=== PATIENT | male | born 1985 | race Caucasian/White ===

== ENCOUNTER 2024-10-21 11:23 | Emergency (ER) | payer OTHER ==
[~2024-10-21] VITALS: Ht 180.3 cm; Wt 108.0 kg
[2024-10-21] MEDS ORDERED: ACETAMINOPHEN 160 MG/5 ML CUP PO ONE (12:30)
[2024-10-21] MEDS ORDERED: predniSONE 20 MG TAB PO ONE (12:30)
[2024-10-21] MEDS ORDERED: ALBUTEROL/IPRATROPIUM 3 ML NEB INH ONE (12:30)
[2024-10-21 13:12] LABS: INFLUENZA B NAA NEGATIVE (NEGATIVE); RESPIRATORY SYNCYTIAL VIR NAA NEGATIVE (NEGATIVE)
[2024-10-21 14:06] VITALS: BP 134/87
== END 2024-10-21 14:07 | disposition home or self-care (01) ==
LOC: ED 11:23
PROVIDERS: Emergency Medicine
DX: J10.1 Influenza due to other identified influenza virus with other respiratory manifestations (principal); J45.909 Unspecified asthma, uncomplicated; E11.9 Type 2 diabetes mellitus without complications; Z91.02 Food additives allergy status; Z91.018 Allergy to other foods
CPT/HCPCS: 87502; 94640; 99285; A9270; J7512; U0002